=== PATIENT | female | born 1945 | race Caucasian/White ===

== ENCOUNTER 2022-03-09 15:46 | Inpatient (IN) ==
[2022-03-09] MEDS ORDERED: IOPAMIDOL 100 ML BOTTLE IV ONE (15:47)
[2022-03-09] MEDS ORDERED: VANCOMYCIN 1,500 MG in 0.9 % SODIUM CHLORIDE 500 ML IV ONE (17:23)
--- NOTE | 2022-03-09 17:23 | Emergency Department Note ---
Skin/Abscess/FB HPI <Patricia Calzada PA-C - Last Filed: 03/09/22 20:36> General Chief complaint: Skin/Abscess/Rash Stated complaint: Leg Injury Time Seen by Provider: 03/09/22 16:39 Source: patient Mode of arrival: ambulatory Limitations: no limitations History of Present Illness HPI Narrative: 76-year-old female with history of recurrent lower extremity cellulitis presents for the same to the right lower extremity today. Patient is a type II diabetic and reports her last A1c was around 8. She states she has a standing order for Keflex given her cellulitis and started taking this about 3 weeks ago but her symptoms have not been improving. Now her right lower extremity is erythematous and she has edema that extends up to the thigh. She denies F/C/S. Denies lightheadedness or dizziness. There is no previous culture data for review. Related Data Allergies Allergy/AdvReac Type Severity Reaction Status Date / Time enalaprilat [From Vasotec] Allergy Severe Swelling Verified 03/09/22 15:53 of Lip/Tongue/Throat clindamycin [From Cleocin] Allergy Intermediate Itching Verified 03/09/22 15:53 Review of Systems <Patricia Calzada PA-C - Last Filed: 03/09/22 20:36> ROS ROS Narrative: Narrative: All systems ED: reviewed and negative except as stated. PFSH <Patricia Calzada PA-C - Last Filed: 03/09/22 20:36> Narrative Patient History Narrative: Narrative: Medical/Surgical/Family History All Active Problems (Updated 03/09/22 @ 20:36 by Patricia Calzada PA-C) Cellulitis (Acute) Social History Smoking Status: Never smoker Exam <Patricia Calzada PA-C - Last Filed: 03/09/22 20:36> Narrative Narrative: General: AOx3, NAD, nontoxic appearing. Pleasant and conversant. HEENT: PERRL, EOMI, normocephalic. Moist mucous membranes. Normal facies and normal dentition. Respiratory: Lungs clear to auscultation bilaterally. No respiratory distress. Unlabored breathing. Heart: Regular rate and rhythm, no murmurs/clicks/rubs. Abdomen: Non-tender, Non distended Extremities: Warm and well perfused. Right lower extremity with 2+ pitting edema up to the mid thigh. There is circumferential erythema from the mid calf down to the ankle. There is some lymphadenitis up through the medial thigh. There is a small ulceration to the mid medial calf, no drainage. DP 2+ bilaterally. No venous stasis. Neuro: No focal deficits. Cranial nerves II-XII grossly normal. Skin: Warm dry, no rashes or lesions, no cyanosis. Psych: Normal mood and affect Heme/Lymph: No abnormal bruising General Limitations: no limitations Course <Patricia Calzada PA-C - Last Filed: 03/09/22 20:36> Course Course Narrative: 76-year-old female with history of lower extremity cellulitis and poorly controlled T2DM presents for 3 weeks of right lower extremity swelling Reevaluation(s) Reevaluation #1: Patient is reported that she has been taking Keflex for the last 3 weeks without improvement. We will obtain a right lower extremity ultrasound to rule out DVT and query for abscess. Establish IV and give IV vancomycin. Obtain basic labs. Patient's vital signs are stable without evidence of sepsis, but will obtain blood cultures given duration and extensiveness of her cellulitis. Reevaluation #2: Right lower extremity venous Doppler shows negative for clots. I have started IV vancomycin and given that the patient is failed outpatient treatment feel that she is appropriate for admission and IV antibiotics. I reached out to hospitalist for admission. Reevaluation #3: Hospitalist is asked me to order a CT of the right lower extremity to query for necrotizing fasciitis or abscess. This is currently pending. Plan will be for admission once resulted. Vital Signs Vital signs: Vital Signs Temperature 97.7 F 03/09/22 15:47 Pulse Rate 82 03/09/22 15:47 Respiratory Rate 16 03/09/22 15:47 Blood Pressure 137/81 03/09/22 15:47 Pulse Oximetry (%) 98 03/09/22 15:47 Oxygen Delivery Method 03/09/22 15:47 Temperature 97.3 F 03/09/22 23:51 Pulse Rate 86 03/09/22 23:51 Respiratory Rate 21 03/09/22 23:51 Blood Pressure 127/66 03/09/22 23:51 Pulse Oximetry (%) 94 03/09/22 23:51 Oxygen Delivery Method 03/09/22 23:36 Oxygen Flow Rate (L/min) 0 03/09/22 23:30 <Ethan Orourke MD - Last Filed: 03/10/22 03:23> Vital Signs Vital signs: Vital Signs Temperature 97.7 F 03/09/22 15:47 Pulse Rate 82 03/09/22 15:47 Respiratory Rate 16 03/09/22 15:47 Blood Pressure 137/81 03/09/22 15:47 Pulse Oximetry (%) 98 03/09/22 15:47 Oxygen Delivery Method 03/09/22 15:47 Temperature 97.3 F 03/09/22 23:51 Pulse Rate 86 03/09/22 23:51 Respiratory Rate 21 03/09/22 23:51 Blood Pressure 127/66 03/09/22 23:51 Pulse Oximetry (%) 94 03/09/22 23:51 Oxygen Delivery Method 03/09/22 23:36 Oxygen Flow Rate (L/min) 0 03/09/22 23:30 MDM <Patricia Calzada PA-C - Last Filed: 03/09/22 20:36> MDM Narrative Medical decision making narrative: Right lower extremity cellulitis Failed outpatient antibiotics. Patient was given IV vancomycin and Dr. Mo has tentatively accepted the patient for admission obtain CT of the right lower extremity. Lab Data Result diagrams: 03/09/22 17:25 Labs: Lab Results 03/09/22 03/09/22 03/09/22 Range/Units 17:25 18:03 19:57 WBC 9.0 (4.5-11.0) K/mcL RBC 4.50 (3.59-5.38) M/mcL Hgb 12.8 (11.2-15.7) g/dL Hct 40.1 (34.1-44.9) % POC Hct 37.0 (36-48) MCV 89.1 (80.0-100.0) fL MCH 28.4 (26.0-34.0) pg MCHC 31.9 (31.0-36.0) g/dL RDW 14.1 (11.5-14.5) % Plt Count 289 (140-440) K/mcL MPV 11.6 H (7.4-10.4) fL Immature Gran % (Auto) 0.6 H (0.0-0.5) % Neut % (Auto) 66.0 (38.0-78.0) % Lymph % (Auto) 21.9 (15.5-49.0) % [place] % (Auto) 8.5 (1.0-12.0) % Eos % (Auto) 2.8 (0.0-7.0) % Baso % (Auto) 0.2 (0.0-2.0) % Lymph # (Auto) 1.98 (1.50-4.80) K/mcL [place] # (Auto) 0.77 (0.10-0.90) K/mcL Eos # (Auto) 0.25 (0.00-0.70) K/mcL Baso # (Auto) 0.02 (0.00-0.30) K/mcL Immature Gran # 0.05 (0.00-0.05) K/mcl Absolute Neutrophils 6.02 (1.80-8.00) K/mcL ESR (0-30) mm/hr POC Sodium 137 (133-145) POC Potassium 3.1 L (3.3-5.1) POC Chloride 95 L (96-108) POC Total CO2 30.0 (22-30) POC BUN 24 H (6-20) POC Creatinine 0.8 (0.6-1.2) POC Glucose 236 H (70-105) Hemoglobin A1c (4.0-6.0) % Hgb Estim Average Glucose mg/dL POC WB Ioniz Calcium 1.29 (1.16-1.32) Total Bilirubin < 0.2 (0.1-1.0) mg/dL Direct Bilirubin < 0.2 (0-0.3) mg/dL AST 18 (<32) U/L ALT 19 (<40) U/L Alkaline Phosphatase 88 (39-117) U/L C-Reactive Protein 3.70 H (0.03-0.80) mg/dL Total Protein 7.2 (5.9-8.4) gm/dL Albumin 3.9 (3.2-5.2) gm/dL Globulin 3.3 (2.2-3.7) gm/dL 03/09/22 03/09/22 Range/Units 19:57 19:57 WBC (4.5-11.0) K/mcL RBC (3.59-5.38) M/mcL Hgb (11.2-15.7) g/dL Hct (34.1-44.9) % POC Hct (36-48) MCV (80.0-100.0) fL MCH (26.0-34.0) pg MCHC (31.0-36.0) g/dL RDW (11.5-14.5) % Plt Count (140-440) K/mcL MPV (7.4-10.4) fL Immature Gran % (Auto) (0.0-0.5) % Neut % (Auto) (38.0-78.0) % Lymph % (Auto) (15.5-49.0) % [place] % (Auto) (1.0-12.0) % Eos % (Auto) (0.0-7.0) % Baso % (Auto) (0.0-2.0) % Lymph # (Auto) (1.50-4.80) K/mcL [place] # (Auto) (0.10-0.90) K/mcL Eos # (Auto) (0.00-0.70) K/mcL Baso # (Auto) (0.00-0.30) K/mcL Immature Gran # (0.00-0.05) K/mcl Absolute Neutrophils (1.80-8.00) K/mcL ESR 58 H (0-30) mm/hr POC Sodium (133-145) POC Potassium (3.3-5.1) POC Chloride (96-108) POC Total CO2 (22-30) POC BUN (6-20) POC Creatinine (0.6-1.2) POC Glucose (70-105) Hemoglobin A1c 8.8 H (4.0-6.0) % Hgb Estim Average Glucose 206 mg/dL POC WB Ioniz Calcium (1.16-1.32) Total Bilirubin (0.1-1.0) mg/dL Direct Bilirubin (0-0.3) mg/dL AST (<32) U/L ALT (<40) U/L Alkaline Phosphatase (39-117) U/L C-Reactive Protein (0.03-0.80) mg/dL Total Protein (5.9-8.4) gm/dL Albumin (3.2-5.2) gm/dL Globulin (2.2-3.7) gm/dL <Ethan Orourke MD - Last Filed: 03/10/22 03:23> [facility] Narrative Medical decision making narrative: Right lower extremity cellulitis Failed outpatient antibiotics. Patient was given IV vancomycin and Dr. Mo has tentatively accepted the patient for admission obtain CT of the right lower extremity. Dr. Orourke: CT scan came back not showing any abscess or subcutaneous gas. Dr. Solis is admitted the patient. Lab Data Labs: Lab Results 03/09/22 03/09/22 03/09/22 Range/Units 17:25 18:03 19:57 WBC 9.0 (4.5-11.0) K/mcL RBC 4.50 (3.59-5.38) M/mcL Hgb 12.8 (11.2-15.7) g/dL Hct 40.1 (34.1-44.9) % POC Hct 37.0 (36-48) MCV 89.1 (80.0-100.0) fL MCH 28.4 (26.0-34.0) pg MCHC 31.9 (31.0-36.0) g/dL RDW 14.1 (11.5-14.5) % Plt Count 289 (140-440) K/mcL MPV 11.6 H (7.4-10.4) fL Immature Gran % (Auto) 0.6 H (0.0-0.5) % Neut % (Auto) 66.0 (38.0-78.0) % Lymph % (Auto) 21.9 (15.5-49.0) % [place] % (Auto) 8.5 (1.0-12.0) % Eos % (Auto) 2.8 (0.0-7.0) % Baso % (Auto) 0.2 (0.0-2.0) % Lymph # (Auto) 1.98 (1.50-4.80) K/mcL [place] # (Auto) 0.77 (0.10-0.90) K/mcL Eos # (Auto) 0.25 (0.00-0.70) K/mcL Baso # (Auto) 0.02 (0.00-0.30) K/mcL Immature Gran # 0.05 (0.00-0.05) K/mcl Absolute Neutrophils 6.02 (1.80-8.00) K/mcL ESR (0-30) mm/hr POC Sodium 137 (133-145) POC Potassium 3.1 L (3.3-5.1) POC Chloride 95 L (96-108) POC Total CO2 30.0 (22-30) POC BUN 24 H (6-20) POC Creatinine 0.8 (0.6-1.2) POC Glucose 236 H (70-105) Hemoglobin A1c (4.0-6.0) % Hgb Estim Average Glucose mg/dL POC WB Ioniz Calcium 1.29 (1.16-1.32) Total Bilirubin < 0.2 (0.1-1.0) mg/dL Direct Bilirubin < 0.2 (0-0.3) mg/dL AST 18 (<32) U/L ALT 19 (<40) U/L Alkaline Phosphatase 88 (39-117) U/L C-Reactive Protein 3.70 H (0.03-0.80) mg/dL Total Protein 7.2 (5.9-8.4) gm/dL Albumin 3.9 (3.2-5.2) gm/dL Globulin 3.3 (2.2-3.7) gm/dL 03/09/22 03/09/22 Range/Units 19:57 19:57 WBC (4.5-11.0) K/mcL RBC (3.59-5.38) M/mcL Hgb (11.2-15.7) g/dL Hct (34.1-44.9) % POC Hct (36-48) MCV (80.0-100.0) fL MCH (26.0-34.0) pg MCHC (31.0-36.0) g/dL RDW (11.5-14.5) % Plt Count (140-440) K/mcL MPV (7.4-10.4) fL Immature Gran % (Auto) (0.0-0.5) % Neut % (Auto) (38.0-78.0) % Lymph % (Auto) (15.5-49.0) % [place] % (Auto) (1.0-12.0) % Eos % (Auto) (0.0-7.0) % Baso % (Auto) (0.0-2.0) % Lymph # (Auto) (1.50-4.80) K/mcL [place] # (Auto) (0.10-0.90) K/mcL Eos # (Auto) (0.00-0.70) K/mcL Baso # (Auto) (0.00-0.30) K/mcL Immature Gran # (0.00-0.05) K/mcl Absolute Neutrophils (1.80-8.00) K/mcL ESR 58 H (0-30) mm/hr POC Sodium (133-145) POC Potassium (3.3-5.1) POC Chloride (96-108) POC Total CO2 (22-30) POC BUN (6-20) POC Creatinine (0.6-1.2) POC Glucose (70-105) Hemoglobin A1c 8.8 H (4.0-6.0) % Hgb Estim Average Glucose 206 mg/dL POC WB Ioniz Calcium (1.16-1.32) Total Bilirubin (0.1-1.0) mg/dL Direct Bilirubin (0-0.3) mg/dL AST (<32) U/L ALT (<40) U/L Alkaline Phosphatase (39-117) U/L C-Reactive Protein (0.03-0.80) mg/dL Total Protein (5.9-8.4) gm/dL Albumin (3.2-5.2) gm/dL Globulin (2.2-3.7) gm/dL Discharge Plan Patient/Caregiver Discharge Instructions Pt seen by INSURANCE ADJUSTER/PA only: Yes Clinical Impression: Cellulitis Patient Disposition: Xfer As Inpt ([facility]) Discharge Date/Time: 03/09/22 23:12
[2022-03-09 18:08] LABS: POC Calcium, Ionized 1.29 (1.16-1.32); POC Creatinine 0.8 (0.6-1.2); POC Potassium 3.1 (3.3-5.1)
[2022-03-09 18:22] LABS: Basophils # (Auto) 0.02 K/mcL (0.00-0.30); Basophils % (Auto) 0.2 % (0.0-2.0); Eosinophils # (Auto) 0.25 K/mcL (0.00-0.70); Eosinophils % (Auto) 2.8 % (0.0-7.0); Hematocrit 40.1 % (34.1-44.9); Hemoglobin 12.8 g/dL (11.2-15.7); Lymphocytes # (Auto) 1.98 K/mcL (1.50-4.80); Lymphocytes % (Auto) 21.9 % (15.5-49.0); Mean Cell Volume 89.1 fL (80.0-100.0); Mean Corpuscular HGB Conc 31.9 g/dL (31.0-36.0); Mean Platelet Volume 11.6 fL (7.4-10.4); Monocytes # (Auto) 0.77 K/mcL (0.10-0.90); Monocytes % (Auto) 8.5 % (1.0-12.0); Platelet Count 289 K/mcL (140-440); Red Cell Distribution Width 14.1 % (11.5-14.5)
--- NOTE | 2022-03-09 18:37 | Ultrasound Report ---
CLINICAL INFORMATION: Right leg cellulitis COMPARISON: None. FINDINGS: The entire deep venous system including the common femoral, superficial femoral, popliteal and paired trifurcation calf veins are easily compressible and show normal venous blood flow on color and spectral Doppler. No evidence of thrombus IMPRESSION: Negative exam - no evidence of deep vein thrombosis. Interpreted and Authenticated by: Freddie Pelletier 03/09/22
--- NOTE | 2022-03-09 19:50 | Internal Med History&Physical ---
HPI History of Present Illness Patient information: Note initiated : 03/09/22 at 7:47 pm Service Date, if different from initiated Date: [] Patient: Jaen Rojas a 76 y/o F admitted on for Leg Injury. Chief Complaint: [] History of present illness: Ms. Rojas is a 76 year old F Patient presents the ED with right lower extremity edema and erythema and pain. Patient has history of cellulitis and leg. She has recently been on several weeks of Keflex but her leg has continue to worsen over the last several weeks. Because she is failed outpatient therapy she came to the ED. Denies any fevers or chills. She did fall on her knee while ago but otherwise no injuries occluding cuts or scrapes. Ultrasound of leg revealed no DVT. CT of the leg pending Review of Systems: Pertinent positives as above. Denies headache/fever/chills/nausea/vomit ing/chest or abdominal pain/cough/dyspnea/diarrhea. Remaining 10 point review of systems reviewed negative PFSH PFSH All Active Problems (Updated 03/09/22 @ 20:36 by Patricia Calzada PA-C) Cellulitis (Acute) MEDS/ALLERGIES Home Medications and Allergies Allergies Allergy/AdvReac Type Severity Reaction Status Date / Time enalaprilat [From Vasotec] Allergy Severe Swelling Verified 03/09/22 15:53 of Lip/Tongue/Throat clindamycin [From Cleocin] Allergy Intermediate Itching Verified 03/09/22 15:53 EXAM Constitutional Vitals: Temp Pulse Resp BP Pulse Ox O2 Del Method 97.7 F 82 16 137/81 98 03/09/22 15:47 03/09/22 15:47 03/09/22 15:47 03/09/22 15:47 03/09/22 15:47 03/09/22 15:47 Exam: General: Alert, Awake, No acute Distress Eyes/N/T: EOMI, PERRL, Head/Neck: neck supple, normocephalic atraumatic CV: RRR, No murmurs, normal s1/s2 Pulm: Clear b/l, no wheezing/rhonchi/rales Abd: soft, nontender, +BS x4 Ext: no clubbing/cyanosis. RLE from ankle to just below the knee is erythematous tender and swollen Neuro: Alert, no focal deficits, moves all extremities, CN 2-12 grossly intact, symmetrical strength b/l upper/lower, sensations intact b/l upper/lower Skin: warm/dry DATA Data Completed and Pending Labs: Labs from last 24 hours 03/09/22 03/09/22 18:03 17:25 WBC 9.0 RBC 4.50 Hgb 12.8 Hct 40.1 POC Hct 37.0 MCV 89.1 MCH 28.4 MCHC 31.9 RDW 14.1 Plt Count 289 MPV 11.6 H Immature Gran % (Auto) 0.6 H Neut % (Auto) 66.0 Lymph % (Auto) 21.9 [place] % (Auto) 8.5 Eos % (Auto) 2.8 Baso % (Auto) 0.2 Lymph # (Auto) 1.98 [place] # (Auto) 0.77 Eos # (Auto) 0.25 Baso # (Auto) 0.02 Immature Gran # 0.05 Absolute Neutrophils 6.02 POC Sodium 137 POC Potassium 3.1 L POC Chloride 95 L POC Total CO2 30.0 POC BUN 24 H POC Creatinine 0.8 POC Glucose 236 H POC WB Ioniz Calcium 1.29 A/P Narrative A/P Narrative: A: *RLE cellulitis: Failed outpatient antibiotics -CT leg *Hypokalemia: *Volume depletion: *HTN: On enalapril/Norvasc *COPD (no home O2): *DM: *Obesity: BMI 30 *Chronic pain: P: -IV abx, MRSA screen pending -CT leg pending -A1c pending -IVF -Replete electrolytes -cont home BP meds -SSI -Elevate leg -PT/OT -Home medication reconciliation -ppx: Lovenox Time Spent With Patient Time: Total time spent is greater than 50% in coordination of care (as documented) at patient's floor/unit and/or counseling patient: Total time spent with greater than 50% in coordination of care (as documented) at patient's floor/unit and/or counseling patient:: 50 - 70 minutes
[2022-03-09 21:05] LABS: ALT/SGPT 19 U/L (<40); AST/SGOT 18 U/L (<32); Albumin 3.9 gm/dL (3.2-5.2); Alkaline Phosphatase 88 U/L (39-117); Bilirubin,Direct < 0.2 mg/dL (0-0.3); Bilirubin,Total < 0.2 mg/dL (0.1-1.0); Globulin 3.3 gm/dL (2.2-3.7)
[2022-03-09] MEDS: 0.9 % SODIUM CHLORIDE 10 ML SYRINGE IV SCH (23:15)
[2022-03-09] MEDS ORDERED: DEXTROSE 31 GM ORAL.SUSP PO PRN (23:36)
[2022-03-09] MEDS ORDERED: HYDROcodone/APAP 5/325MG TABLET PO PRN (23:36)
[2022-03-09] MEDS ORDERED: hydrALAZINE 20 MG/ML VIAL IV PRN (23:36)
[2022-03-09] MEDS ORDERED: POTASSIUM CHLORIDE 20 MEQ TABLET PO ONE (23:36)
[2022-03-09] MEDS ORDERED: ACETAMINOPHEN 325 MG TABLET PO PRN (23:36)
[2022-03-09] MEDS ORDERED: POTASSIUM CHLORIDE 20 MEQ TABLET PO PRN ×2 (23:36)
[2022-03-09] MEDS ORDERED: MAGNESIUM SULFATE 2 GM/50 ML BAG IV PRN (23:36)
[2022-03-09] MEDS ORDERED: SENNOSIDES 1 TABLET PO PRN (23:36)
[2022-03-09] MEDS ORDERED: DEXTROSE 50% 50 ML VIAL IV PRN (23:36)
[2022-03-09] MEDS ORDERED: POTASSIUM CHLORIDE 40 MEQ in DEXTROSE 5% IN WATER 500 ML IV PRN (23:36)
[2022-03-09] MEDS ORDERED: morphine 4 MG/ML VIAL IV PRN (23:36)
[2022-03-09] MEDS ORDERED: VANCOMYCIN PER PHARMACY IV ONE (23:36)
[2022-03-09] MEDS ORDERED: ONDANSETRON 4 MG/2 ML VIAL IV PRN (23:36)
[2022-03-09] MEDS ORDERED: cefTRIAXone 2 GM in DEXTROSE 5% IN WATER 50 ML IV SCH (23:36)
[2022-03-09] MEDS ORDERED: 0.9 % SODIUM CHLORIDE 1,000 ML IV ONE (23:36)
[2022-03-09] MEDS ORDERED: POLYETHYLENE GLYCOL 3350 17 GM PACKET PO PRN (23:36)
[2022-03-09] MEDS ORDERED: IPRATROPIUM/ALBUTEROL 3 ML AMPUL.NEB NEB PRN (23:36)
[2022-03-10] MEDS ORDERED: traMADol 50 MG TABLET PO PRN (00:16)
[2022-03-10] MEDS: DOCUSATE SODIUM 100 MG CAPSULE PO SCH ×2 (00:25→09:11)
[2022-03-10] MEDS: INSULIN LISPRO 1 UNIT/0.01 ML UNIT SQ SCH ×5 (00:28→20:41)
[2022-03-10] MEDS: ACETAMINOPHEN W/CODEINE #3 1 TABLET PO PRN ×3 (01:03→17:13)
[2022-03-10] MEDS ORDERED: ACETAMINOPHEN W/CODEINE #3 1 TABLET PO ONE ×2 (01:04→23:56)
[2022-03-10] MEDS ORDERED: POTASSIUM CHLORIDE 20 MEQ TABLET PO ONE (01:05)
[2022-03-10] MEDS ORDERED: cefTRIAXone 2 GM VIAL ONE ×2 (01:05→13:52)
[2022-03-10 01:08] LABS: Hemoglobin A1C 8.8 % Hgb (4.0-6.0)
--- NOTE | 2022-03-10 03:24 | Emergency Department Note ---
Skin/Abscess/FB HPI General Chief complaint: Skin/Abscess/Rash Stated complaint: Leg Injury Time Seen by Provider: 03/09/22 16:39 Source: patient Mode of arrival: ambulatory Limitations: no limitations History of Present Illness HPI Narrative: Narrative: Related Data Allergies Allergy/AdvReac Type Severity Reaction Status Date / Time enalaprilat [From Vasotec] Allergy Severe Swelling Verified 03/09/22 15:53 of Lip/Tongue/Throat clindamycin [From Cleocin] Allergy Intermediate Itching Verified 03/09/22 15:53 Review of Systems ROS ROS Narrative: Narrative: PFSH Narrative Patient History Narrative: Narrative: Medical/Surgical/Family History All Active Problems (Updated 03/09/22 @ 20:36 by Patricia Calzada PA-C) Cellulitis (Acute) Social History Smoking Status: Never smoker Exam Narrative Narrative: Narrative: General Limitations: no limitations Course Vital Signs Vital signs: Vital Signs Temperature 97.7 F 03/09/22 15:47 Pulse Rate 82 03/09/22 15:47 Respiratory Rate 16 03/09/22 15:47 Blood Pressure 137/81 03/09/22 15:47 Pulse Oximetry (%) 98 03/09/22 15:47 Oxygen Delivery Method 03/09/22 15:47 Temperature 97.3 F 03/09/22 23:51 Pulse Rate 86 03/09/22 23:51 Respiratory Rate 21 03/09/22 23:51 Blood Pressure 127/66 03/09/22 23:51 Pulse Oximetry (%) 94 03/09/22 23:51 Oxygen Delivery Method 03/09/22 23:36 Oxygen Flow Rate (L/min) 0 03/09/22 23:30 MDM MDM Narrative Medical decision making narrative: Narrative: Lab Data Result diagrams: 03/09/22 17:25 Labs: Lab Results 03/09/22 03/09/22 03/09/22 Range/Units 17:25 18:03 19:57 WBC 9.0 (4.5-11.0) K/mcL RBC 4.50 (3.59-5.38) M/mcL Hgb 12.8 (11.2-15.7) g/dL Hct 40.1 (34.1-44.9) % POC Hct 37.0 (36-48) MCV 89.1 (80.0-100.0) fL MCH 28.4 (26.0-34.0) pg MCHC 31.9 (31.0-36.0) g/dL RDW 14.1 (11.5-14.5) % Plt Count 289 (140-440) K/mcL MPV 11.6 H (7.4-10.4) fL Immature Gran % (Auto) 0.6 H (0.0-0.5) % Neut % (Auto) 66.0 (38.0-78.0) % Lymph % (Auto) 21.9 (15.5-49.0) % [place] % (Auto) 8.5 (1.0-12.0) % Eos % (Auto) 2.8 (0.0-7.0) % Baso % (Auto) 0.2 (0.0-2.0) % Lymph # (Auto) 1.98 (1.50-4.80) K/mcL [place] # (Auto) 0.77 (0.10-0.90) K/mcL Eos # (Auto) 0.25 (0.00-0.70) K/mcL Baso # (Auto) 0.02 (0.00-0.30) K/mcL Immature Gran # 0.05 (0.00-0.05) K/mcl Absolute Neutrophils 6.02 (1.80-8.00) K/mcL ESR (0-30) mm/hr POC Sodium 137 (133-145) POC Potassium 3.1 L (3.3-5.1) POC Chloride 95 L (96-108) POC Total CO2 30.0 (22-30) POC BUN 24 H (6-20) POC Creatinine 0.8 (0.6-1.2) POC Glucose 236 H (70-105) Hemoglobin A1c (4.0-6.0) % Hgb Estim Average Glucose mg/dL POC WB Ioniz Calcium 1.29 (1.16-1.32) Total Bilirubin < 0.2 (0.1-1.0) mg/dL Direct Bilirubin < 0.2 (0-0.3) mg/dL AST 18 (<32) U/L ALT 19 (<40) U/L Alkaline Phosphatase 88 (39-117) U/L C-Reactive Protein 3.70 H (0.03-0.80) mg/dL Total Protein 7.2 (5.9-8.4) gm/dL Albumin 3.9 (3.2-5.2) gm/dL Globulin 3.3 (2.2-3.7) gm/dL 03/09/22 03/09/22 Range/Units 19:57 19:57 WBC (4.5-11.0) K/mcL RBC (3.59-5.38) M/mcL Hgb (11.2-15.7) g/dL Hct (34.1-44.9) % POC Hct (36-48) MCV (80.0-100.0) fL MCH (26.0-34.0) pg MCHC (31.0-36.0) g/dL RDW (11.5-14.5) % Plt Count (140-440) K/mcL MPV (7.4-10.4) fL Immature Gran % (Auto) (0.0-0.5) % Neut % (Auto) (38.0-78.0) % Lymph % (Auto) (15.5-49.0) % [place] % (Auto) (1.0-12.0) % Eos % (Auto) (0.0-7.0) % Baso % (Auto) (0.0-2.0) % Lymph # (Auto) (1.50-4.80) K/mcL [place] # (Auto) (0.10-0.90) K/mcL Eos # (Auto) (0.00-0.70) K/mcL Baso # (Auto) (0.00-0.30) K/mcL Immature Gran # (0.00-0.05) K/mcl Absolute Neutrophils (1.80-8.00) K/mcL ESR 58 H (0-30) mm/hr POC Sodium (133-145) POC Potassium (3.3-5.1) POC Chloride (96-108) POC Total CO2 (22-30) POC BUN (6-20) POC Creatinine (0.6-1.2) POC Glucose (70-105) Hemoglobin A1c 8.8 H (4.0-6.0) % Hgb Estim Average Glucose 206 mg/dL POC WB Ioniz Calcium (1.16-1.32) Total Bilirubin (0.1-1.0) mg/dL Direct Bilirubin (0-0.3) mg/dL AST (<32) U/L ALT (<40) U/L Alkaline Phosphatase (39-117) U/L C-Reactive Protein (0.03-0.80) mg/dL Total Protein (5.9-8.4) gm/dL Albumin (3.2-5.2) gm/dL Globulin (2.2-3.7) gm/dL Discharge Plan Patient/Caregiver Discharge Instructions Pt seen by ELECTRIC SWITCH REPAIRER/PA only: Yes Clinical Impression: Cellulitis Patient Disposition: Xfer As Inpt ([facility]) Discharge Date/Time: 03/09/22 23:12
[2022-03-10] MEDS ORDERED: traMADol 50 MG TABLET PO ONE (03:59)
[2022-03-10] MEDS: 0.9 % SODIUM CHLORIDE 10 ML SYRINGE IV SCH ×3 (06:05→20:44)
[2022-03-10 06:52] LABS: Basophils # (Auto) 0.03 K/mcL (0.00-0.30); Basophils % (Auto) 0.4 % (0.0-2.0); Eosinophils # (Auto) 0.29 K/mcL (0.00-0.70); Eosinophils % (Auto) 3.7 % (0.0-7.0); Hematocrit 37.3 % (34.1-44.9); Hemoglobin 11.7 g/dL (11.2-15.7); Lymphocytes # (Auto) 1.38 K/mcL (1.50-4.80); Lymphocytes % (Auto) 17.6 % (15.5-49.0); Mean Cell Volume 88.8 fL (80.0-100.0); Mean Corpuscular HGB Conc 31.4 g/dL (31.0-36.0); Mean Platelet Volume 11.1 fL (7.4-10.4); Monocytes # (Auto) 0.61 K/mcL (0.10-0.90); Monocytes % (Auto) 7.8 % (1.0-12.0); Neutrophils % (Auto) 69.9 % (38.0-78.0); Platelet Count 258 K/mcL (140-440); WBC 7.8 K/mcL (4.5-11.0)
[2022-03-10 07:12] LABS: ALT/SGPT 15 U/L (<40); AST/SGOT 14 U/L (<32); Albumin 3.4 gm/dL (3.2-5.2); Albumin/Globulin Ratio 1.2 (1.0-2.3); Alkaline Phosphatase 71 U/L (39-117); Bilirubin,Direct < 0.2 mg/dL (0-0.3); Bilirubin,Total 0.2 mg/dL (0.1-1.0); Blood Urea Nitrogen 12 mg/dL (8-23); Calcium 8.9 mg/dL (8.6-10.4); Carbon Dioxide 26 mmol/L (22-30); Chloride 101 mmol/L (96-108); Globulin 2.8 gm/dL (2.2-3.7); Glomerular Filtration Rate 84; Glucose 126 mg/dL (70-105); Lactate Dehydrogenase 191 U/L (135-225); Phosphorous 2.8 mg/dL (2.5-4.5); Triglycerides 127 mg/dL (<150); Uric Acid 6.2 mg/dL (2.5-8.0)
--- NOTE | 2022-03-10 07:30 | Cat Scan Report ---
CLINICAL INFORMATION: Erythema. Evaluate for abscess COMPARISON: None. TECHNIQUE: 0.625 mm axial slices were obtained from the femoral condyles through the midfoot region. Following reconstruction, 2.5 millimeter axial, sagittal and coronal reformations were obtained and reviewed in bone and soft tissue windows.The exam was performed using radiation dose optimization techniques including, but not limited to, automated exposure control, adjustment of the mA and/or kV according to patient size and use of iterative reconstruction technique. FINDINGS: Bone windows show a nondisplaced subacute spiral fracture the distal fibular diaphysis extending to the metaphysis. No other osseous abnormalities-no evidence of osteomyelitis. The patellofemoral and tibiofemoral joint ankle mortise and joints of the hindfoot space are normal in width and alignment without arthritic change. A 20 mm benign lipoma is seen within the gastrocnemius muscle belly. No evidence of myositis or abscess. There is moderate diffuse edema or cellulitis in the subcutaneous fat throughout the calf and ankle. IMPRESSION: 1. Diffuse edema or cellulitis throughout the subcutaneous fat of the calf and ankle. No evidence of abscess or myositis. 2. No evidence of osteomyelitis. 3. Subacute nondisplaced spiral fracture of the distal fibula diaphysis and metaphysis. 4. 20 mm lipoma in the gastrocnemius muscle belly Interpreted and Authenticated by: Freddie Pellteier 03/10/22
[2022-03-10] MEDS ORDERED: FLUCONAZOLE 150 MG TABLET PO PRN (07:35)
--- NOTE | 2022-03-10 07:39 | Internal Med Progress Note ---
SUBJECTIVE Subjective Patient information: Note initiated : 03/10/22 at 7:32 am Service Date, if different from initiated Date: [] Patient: Jane Rojas a 77 y/o F admitted on 03/09/22 for Leg Injury. Chief Complaint: [] Interval history: History of present illness: Ms. Rojas is a 76 year old F Patient presents the ED with right lower extremity edema and erythema and pain. Patient has history of cellulitis and leg. She has recently been on several weeks of Keflex but her leg has continue to worsen over the last several weeks. Because she is failed outpatient therapy she came to the ED. Denies any fevers or chills. She did fall on her knee while ago but otherwise no injuries occluding cuts or scrapes. Ultrasound of leg revealed no DVT. CT of the leg pending 03/10 Patient states no change in her leg as far as pain and swelling and redness. Mild edema. Patient has chronic pain in ask about her Tylenol for and tramadol. Boot to right ankle weightbearing as tolerated Review of Systems: denies headache/fever/chills/nausea/vomiting/chest or abdominal pain/cough/dyspnea/diarrhea. Otherwise see above. Constitutional Vitals: Vital Signs Temp Pulse Resp BP Pulse Ox O2 Del Method O2 Flow Rate 98.8 F 86 16 126/69 94 0 03/10/22 04:00 03/09/22 23:51 03/10/22 04:00 03/10/22 04:00 03/10/22 04:00 03/10/22 04:00 03/10/22 04:00 Period Temp Pulse Resp BP Sys/Venegas Pulse Ox O2 Del Method O2 Flow Rate Last 24 Hr 97.3 F-98.8 F 82-91 16- 112-154/53-81 94-98 Room Air-Room r 0-0 Intake and Output 03/09/22 03/10/22 03/10/22 21:59 05:59 13:59 Intake Total 500 900 Balance 500 900 Weight 75.75 kg 77.065 kg Intake & Output: Intake & Output 03/09/22 03/10/22 03/10/22 21:59 05:59 13:59 Intake Total 500 900 Balance 500 900 Weight 75.75 kg 77.065 kg Intake: IV 500 50 Vancomycin 1,500 mg In Sodium 500 Chloride 0.9% 500 ml @ 333.3 mls/hr IV ONCE ONE Rx#: [id number] Rocephin 2 gm In Dextrose 5% in 50 Water 50 ml @ 100 mls/hr IV Q24H [facility] Rx#:[id number] Oral 850 Other: Meal snack Percent of Meal Consumed 100% Nourishment/Supplement name given egg salad # Voids 1 # Bowel Movements 0 Exam: General: Alert, Awake, No acute Distress, obese Eyes/N/T: EOMI, Head/Neck: neck supple, CV: RRR, No murmurs, Pulm: Clear b/l, no wheezing/rhonchi/rales Abd: soft, nontender, +BS x4 Ext: no clubbing/cyanosis. RLE from ankle to just below the knee is erythematous tender and swollen Neuro: Alert, no focal deficits, moves all extremities, Skin: warm/dry OBJ DATA Labs CBC & Chem 7: 03/10/22 05:23 03/10/22 05:23 Labs: Abnormal Lab Results 03/10/22 03/10/22 03/09/22 05:23 05:23 19:57 MPV 11.1 H Immature Gran % (Auto) 0.6 H Lymph # (Auto) 1.38 L ESR POC Potassium POC Chloride POC BUN Glucose 126 H POC Glucose Hemoglobin A1c 8.8 H GGT 39 H C-Reactive Protein 03/09/22 03/09/22 03/09/22 19:57 19:57 18:03 MPV Immature Gran % (Auto) Lymph # (Auto) ESR 58 H POC Potassium 3.1 L POC Chloride 95 L POC BUN 24 H Glucose POC Glucose 236 H Hemoglobin A1c GGT C-Reactive Protein 3.70 H 03/09/22 17:25 MPV 11.6 H Immature Gran % (Auto) 0.6 H Lymph # (Auto) ESR POC Potassium POC Chloride POC BUN Glucose POC Glucose Hemoglobin A1c GGT C-Reactive Protein Meds: Medications Acetaminophen (Acetaminophen 325 Mg Tablet) 650 mg PO Q6HP PRN; Protocol PRN Reason: Per Pain Protocol/Fever > 101 Acetaminophen/Codeine Phosphate (Acetaminophen W/Codeine #3 1 Tablet) 2 tab PO Q6HP PRN; Protocol PRN Reason: Per Pain Protocol Last Admin: 03/10/22 01:03 Dose: 2 tab Albuterol/Ipratropium (Ipratropium/Albuterol 3 Ml Ampul.Neb) 3 ml NEB Q4HP PRN PRN Reason: Shortness Of Breath Dextrose (Dextrose 50% 50 Ml Vial) 0 ml IV UD PRN PRN Reason: Per Sliding Scale Diagnostic Test (Pha) (Accu-Chek 1 Each Strip) 1 each FS ACHS [facility] Last Admin: 03/10/22 00:05 Dose: 1 each Docusate Sodium (Docusate Sodium 100 Mg Capsule) 100 mg PO BID [facility] Last Admin: 03/10/22 00:25 Dose: Not Given Enoxaparin Sodium (Enoxaparin 40 Mg/0.4 Ml Syringe) 40 mg SQ DAILY [facility] Glucose (Dextrose 31 Gm Oral.Susp) 15 gm PO PRN PRN PRN Reason: Hypoglycemia Hydralazine HCl (Hydralazine 20 Mg/Ml Vial) 0 mg IV Q2HP PRN PRN Reason: Hypertension Potassium Chloride 40 meq/ (Dextrose) 520 mls @ 130 mls/hr IV UD PRN PRN Reason: Potassium < 3 Magnesium Sulfate (Magnesium Sulfate) 2 gm in 50 mls @ 50 mls/hr IV UD PRN PRN Reason: Magnesium </= 1.6 Sodium Chloride (Sodium Chloride 0.9%) 1,000 mls @ 75 mls/hr IV .[id number] ONE Stop: 03/10/22 12:55 Last Admin: 03/10/22 00:30 Dose: 75 mls/hr Ceftriaxone Sodium 2 gm/ (Dextrose) 50 mls @ 100 mls/hr IV Q24H [facility]; Protocol Last Infusion: 03/10/22 01:36 Dose: Infused Insulin Human Lispro (Insulin Lispro 1 Unit/0.01 Ml Unit) 0 unit SQ [facility]; Protocol Last Admin: 03/10/22 00:28 Dose: Not Given Ondansetron HCl (Ondansetron 4 Mg/2 Ml Vial) 4 mg IV Q4HP PRN PRN Reason: Nausea And Vomiting Polyethylene Glycol (Polyethylene Glycol 3350 17 Gm Packet) 17 gm PO DAILYP PRN PRN Reason: Constipation Potassium Chloride (Potassium Chloride 20 Meq Tablet) 40 meq PO UD PRN PRN Reason: Potssium is 3-3.5 Potassium Chloride (Potassium Chloride 20 Meq Tablet) 40 meq PO UD PRN PRN Reason: Potassium < 3 Potassium Chloride (Potassium Chloride 20 Meq Tablet) 40 meq PO ONCE ONE Stop: 03/09/22 23:37 Last Admin: 03/10/22 01:03 Dose: 40 meq Senna (Sennosides 1 Tablet) 2 tab PO DAILYP PRN PRN Reason: Constipation Sodium Chloride (0.9 % Sodium Chloride 10 Ml Syringe) 10 ml IV Q8 [facility] Last Admin: 03/10/22 06:05 Dose: Not Given Tramadol HCl (Tramadol 50 Mg Tablet) 50 mg PO Q4HP PRN; Protocol PRN Reason: Pain Last Admin: 03/10/22 03:51 Dose: 50 mg Vancomycin HCl (Vancomycin Per Pharmacy) 1 order IV ONCE ONE; Protocol Stop: 03/09/22 23:37 Last Admin: 03/10/22 01:08 Dose: Not Given A/P Narrative A/P Narrative: A: *RLE cellulitis: Failed outpatient antibiotics -CT leg no abscess /fasciitis *Hypokalemia: improved *Volume depletion: *HTN: On enalapril/Norvasc *COPD (no home O2): *DM: a1c 8.8 *Obesity: BMI 30 *Chronic pain: *GERD: *subacute lateral malleolus fracture on right P: -IV abx, MRSA screen neg -CT leg pending -Replete electrolytes -cont home BP meds and diuretics -basal and SSI -Elevate leg -Per Geo for ankle> wbat, boot, f/u in office -PT/OT -ppx: Lovenox / home ppi Time Spent With Patient Time: Total time spent is greater than 50% in coordination of care (as documented) at patient's floor/unit and/or counseling patient: Total time spent with greater than 50% in coordination of care (as documented) at patient's floor/unit and/or counseling patient:: 25 - 35 minutes QUALITY VTE Deep Vein Thrombosis/Pulmonary Embolism Present on Admission: No
[2022-03-10] MEDS ORDERED: VANCOMYCIN PER PHARMACY IV SCH (07:45)
[2022-03-10] MEDS ORDERED: UMECLIDINIUM 62.5 MCG INH SCH (09:00)
[2022-03-10] MEDS ORDERED: DOCUSATE SODIUM 100 MG PO SCH (09:00)
[2022-03-10] MEDS: SPIRONOLACTONE 25 MG TABLET PO SCH (09:08)
[2022-03-10] MEDS: ENOXAPARIN 40 MG/0.4 ML SYRINGE SQ SCH (09:09)
[2022-03-10] MEDS: FUROSEMIDE 80 MG TABLET PO SCH (09:09)
[2022-03-10] MEDS: METHOCARBAMOL 500 MG TABLET PO PRN ×3 (09:09→20:43)
[2022-03-10] MEDS: ALLOPURINOL 100 MG TABLET PO SCH (09:10)
[2022-03-10] MEDS: PREGABALIN 100 MG CAPSULE PO SCH ×3 (09:10→20:42)
[2022-03-10] MEDS: MONTELUKAST 10 MG TABLET PO SCH ×2 (09:10→20:43)
[2022-03-10] MEDS: VANCOMYCIN 1,000 MG in 0.9 % SODIUM CHLORIDE 250 ML IV SCH ×2 (10:50→22:09)
[2022-03-10] MEDS: POTASSIUM CHLORIDE 10 MEQ TABLET PO SCH ×2 (10:51→17:10)
[2022-03-10] MEDS: INSULIN GLARGINE, HUMAN 1 UNIT/0.01 ML SQ SCH ×2 (10:51→20:41)
[2022-03-10] MEDS: FLUTICASONE/SALMETEROL 250/50 INHALER #14 INH SCH ×2 (11:17→20:40)
[2022-03-10] MEDS: PRAMIPEXOLE 0.25 MG TABLET PO SCH ×2 (13:44→20:42)
[2022-03-10] MEDS: traMADol 50 MG TABLET PO PRN ×2 (13:55→22:08)
[2022-03-10] MEDS: cefTRIAXone 2 GM in DEXTROSE 5% IN WATER 50 ML IV SCH (15:21)
[2022-03-10] MEDS: METOPROLOL SUCCINATE 25 MG TAB.XL.24H PO SCH (20:43)
[2022-03-10] MEDS: SIMVASTATIN 10 MG TABLET PO SCH (20:43)
[2022-03-10] MEDS ORDERED: [UNRECOGNIZED DRUG - OTHER] INH SCH (21:00)
[2022-03-10] MEDS ORDERED: ALBUTEROL SULFATE 200 PUFF INHALER INH PRN (23:14)
[2022-03-10] MEDS ORDERED: ACETAMINOPHEN W/CODEINE #3 1 TABLET PO PRN (23:34)
[2022-03-11] MEDS: traMADol 50 MG TABLET PO PRN ×2 (05:13→19:26)
[2022-03-11] MEDS: 0.9 % SODIUM CHLORIDE 10 ML SYRINGE IV SCH ×3 (05:14→20:36)
[2022-03-11 07:16] LABS: Blood Urea Nitrogen 13 mg/dL (8-23); Calcium 9.1 mg/dL (8.6-10.4); Carbon Dioxide 25 mmol/L (22-30); Chloride 104 mmol/L (96-108); Glomerular Filtration Rate 72; Glucose 160 mg/dL (70-105)
--- NOTE | 2022-03-11 07:45 | Internal Med Progress Note ---
SUBJECTIVE Subjective Patient information: Note initiated : 03/11/22 at 7:41 am Service Date, if different from initiated Date: [] Patient: Jane Rojas a 77 y/o F admitted on 03/09/22 for Leg Injury. Chief Complaint: [] Interval history: History of present illness: Ms. Rojas is a 76 year old F Patient presents the ED with right lower extremity edema and erythema and pain. Patient has history of cellulitis and leg. She has recently been on several weeks of Keflex but her leg has continue to worsen over the last several weeks. Because she is failed outpatient therapy she came to the ED. Denies any fevers or chills. She did fall on her knee while ago but otherwise no injuries occluding cuts or scrapes. Ultrasound of leg revealed no DVT. CT of the leg pending 03/10 Patient states no change in her leg as far as pain and swelling and redness. Mild edema. Patient has chronic pain in ask about her Tylenol for and tramadol. Boot to right ankle weightbearing as tolerated 03/11 Patient states no change in her leg although she does feel some swelling is improved since given some extra dose of Lasix yesterday. Compression wraps not placed yesterday. Review of Systems: denies headache/fever/chills/nausea/vomiting/chest or abdominal p ain/cough/dyspnea/diarrhea. Otherwise see above. Constitutional Vitals: Vital Signs Temp Pulse Resp BP Pulse Ox O2 Del Method O2 Flow Rate 97.9 F 118 H 20 135/75 96 0 03/11/22 04:00 03/10/22 20:00 03/11/22 04:00 03/11/22 04:00 03/11/22 04:00 03/11/22 04:00 03/11/22 04:00 Period Temp Pulse Resp BP Sys/Venegas Pulse Ox O2 Del Method O2 Flow Rate Last 24 Hr 97.9 F-99.2 F 118 20-20 102-155/57-91 93-99 Room Air-Room Air 0-0 Intake and Output 03/10/22 03/11/22 03/11/22 21:59 05:59 13:59 Intake Total 1700 1300 Output Total 0 Balance 1700 1300 Weight 69.763 kg Intake & Output: Intake & Output 03/10/22 03/11/22 03/11/22 21:59 05:59 13:59 Intake Total 1700 1300 Output Total 0 Balance 1700 1300 Weight 69.763 kg Intake: IV 1050 250 Sodium Chloride 0.9% 1,000 ml @ 1000 75 mls/hr IV .[id number] Rx#: [id number] Vancomycin 1,000 mg In Sodium 250 Chloride 0.9% 250 ml @ 250 mls/ hr IV Q12H [facility] Rx#:[id number] Rocephin 2 gm In Dextrose 5% in 50 Water 50 ml @ 100 mls/hr IV Q24H [facility] Rx#:[id number] Oral 650 1050 Output: # of times incontinent of urine 0 Other: Meal snack Percent of Meal Consumed 100% Nourishment/Supplement name tuna fish salad and crackers Urine Appearance Clear Urine Color Pale Urine Odor Normal Stool Size Smear Stool Color Brown Stool Consistency Cylindrical # Voids 1 1 # Bowel Movements 3 0 # of times incontinent of 0 Bowels Exam: General: Alert, Awake, No acute Distress, obese Eyes/N/T: EOMI, Head/Neck: neck supple, CV: RRR, No murmurs, Pulm: Clear b/l, no wheezing/rhonchi/rales Abd: soft, nontender, +BS x4 Ext: no clubbing/cyanosis. RLE from ankle to just below the knee is erythematous mildly tender and mild edema Neuro: Alert, no focal deficits, moves all extremities, Skin: warm/dry OBJ DATA Labs CBC & Chem 7: 03/10/22 05:23 03/11/22 05:46 Labs: Abnormal Lab Results 03/11/22 03/11/22 03/10/22 05:46 05:46 05:23 MPV Immature Gran % (Auto) Lymph # (Auto) ESR 61 H POC Potassium POC Chloride POC BUN Glucose 160 H 126 H POC Glucose Hemoglobin A1c GGT 39 H C-Reactive Protein 2.30 H 03/10/22 03/09/22 03/09/22 05:23 19:57 19:57 MPV 11.1 H Immature Gran % (Auto) 0.6 H Lymph # (Auto) 1.38 L ESR 58 H POC Potassium POC Chloride POC BUN Glucose POC Glucose Hemoglobin A1c 8.8 H GGT C-Reactive Protein 03/09/22 03/09/22 03/09/22 19:57 18:03 17:25 MPV 11.6 H Immature Gran % (Auto) 0.6 H Lymph # (Auto) ESR POC Potassium 3.1 L POC Chloride 95 L POC BUN 24 H Glucose POC Glucose 236 H Hemoglobin A1c GGT C-Reactive Protein 3.70 H Meds: Medications Acetaminophen (Acetaminophen 325 Mg Tablet) 650 mg PO Q6HP PRN; Protocol PRN Reason: Per Pain Protocol/Fever > 101 Acetaminophen/Codeine Phosphate (Acetaminophen W/Codeine #3 1 Tablet) 2 tab PO Q6HP PRN; Protocol PRN Reason: Per Pain Protocol Last Admin: 03/10/22 23:47 Dose: 2 tab Albuterol Sulfate (Albuterol Sulfate 200 Puff Inhaler) 2 puff INH Q4HP PRN PRN Reason: Shortness Of Breath Last Admin: 03/11/22 01:26 Dose: 2 puff Albuterol/Ipratropium (Ipratropium/Albuterol 3 Ml Ampul.Neb) 3 ml NEB Q4HP PRN PRN Reason: Shortness Of Breath Allopurinol (Allopurinol 100 Mg Tablet) 100 mg PO QDAY [facility] Last Admin: 03/10/22 09:10 Dose: 100 mg Dextrose (Dextrose 50% 50 Ml Vial) 0 ml IV UD PRN PRN Reason: Per Sliding Scale Diagnostic Test (Pha) (Accu-Chek 1 Each Strip) 1 each FS ACHS [facility] Last Admin: 03/10/22 20:40 Dose: 1 each Enoxaparin Sodium (Enoxaparin 40 Mg/0.4 Ml Syringe) 40 mg SQ DAILY [facility] Last Admin: 03/10/22 09:09 Dose: 40 mg Furosemide (Furosemide 80 Mg Tablet) 80 mg PO QDAY [facility] Last Admin: 03/10/22 09:09 Dose: 80 mg Glucose (Dextrose 31 Gm Oral.Susp) 15 gm PO PRN PRN PRN Reason: Hypoglycemia Hydralazine HCl (Hydralazine 20 Mg/Ml Vial) 0 mg IV Q2HP PRN PRN Reason: Hypertension Last Admin: 03/11/22 00:05 Dose: 10 mg Potassium Chloride 40 meq/ (Dextrose) 520 mls @ 130 mls/hr IV UD PRN PRN Reason: Potassium < 3 Magnesium Sulfate (Magnesium Sulfate) 2 gm in 50 mls @ 50 mls/hr IV UD PRN PRN Reason: Magnesium </= 1.6 Ceftriaxone Sodium 2 gm/ (Dextrose) 50 mls @ 100 mls/hr IV Q24H [facility]; Protocol Last Infusion: 03/10/22 17:01 Dose: Infused Vancomycin HCl 1,000 mg/ (Sodium Chloride) 250 mls @ 250 mls/hr IV Q12H [facility] Last Infusion: 03/10/22 23:10 Dose: Infused Insulin Glargine (Insulin Glargine, Human 1 Unit/0.01 Ml) 30 unit SQ [facility] Last Admin: 03/10/22 20:41 Dose: 30 units Insulin Glargine (Insulin Glargine, Human 1 Unit/0.01 Ml) 72 unit SQ DAILY [facility] Last Admin: 03/10/22 10:51 Dose: 72 units Insulin Human Lispro (Insulin Lispro 1 Unit/0.01 Ml Unit) 0 unit SQ ACHS [facility]; Protocol Last Admin: 03/10/22 20:41 Dose: 10 units Methocarbamol (Methocarbamol 500 Mg Tablet) 1,000 mg PO QIDP PRN PRN Reason: Spasms Last Admin: 03/10/22 20:43 Dose: 1,000 mg Metoprolol Succinate (Metoprolol Succinate 25 Mg Tab.Xl.24h) 25 mg PO [facility] Last Admin: 03/10/22 20:43 Dose: 25 mg Montelukast Sodium (Montelukast 10 Mg Tablet) 10 mg PO QDAY [facility] Last Admin: 03/10/22 09:10 Dose: 10 mg Montelukast Sodium (Montelukast 10 Mg Tablet) 10 mg PO QPM [facility] Last Admin: 03/10/22 20:43 Dose: 10 mg Non-Formulary Medication (Acetaminophen-Codeine ) 60 - 300 mg PO Q6HP PRN PRN Reason: Pain Non-Formulary Medication (Patient's Own Medication) 1 puff INH QHS [facility] Last Admin: 03/10/22 22:08 Dose: 1 puff Ondansetron HCl (Ondansetron 4 Mg/2 Ml Vial) 4 mg IV Q4HP PRN PRN Reason: Nausea And Vomiting Pantoprazole Sodium (Pantoprazole 40 Mg Tablet) [facility] Umeclidin[facility] [ Incruse Ellipta] 62. 5 Mcg Inhaler 1 dose INH QDAY [facility] Last Admin: 03/10/22 11:17 Dose: Not Given Polyethylene Glycol (Polyethylene Glycol 3350 17 Gm Packet) 17 gm PO DAILYP PRN PRN Reason: Constipation Potassium Chloride (Potassium Chloride 20 Meq Tablet) 40 meq PO UD PRN PRN Reason: Potssium is 3-3.5 Potassium Chloride (Potassium Chloride 20 Meq Tablet) 40 meq PO UD PRN PRN Reason: Potassium < 3 Potassium Chloride (Potassium Chloride 10 Meq Tablet) 10 meq PO BIDCC [facility] Last Admin: 03/10/22 17:10 Dose: 10 meq Pramipexole Dihydrochloride (Pramipexole 0.25 Mg Tablet) 0.5 mg PO QHS [facility] Last Admin: 03/10/22 20:42 Dose: 0.5 mg Pramipexole Dihydrochloride (Pramipexole 0.25 Mg Tablet) 0.25 mg PO QNOON [facility] Last Admin: 03/10/22 13:44 Dose: 0.25 mg Pregabalin (Pregabalin 100 Mg Capsule) 200 mg PO TID [facility] Last Admin: 03/10/22 20:42 Dose: 200 mg Fluticasone/Salmeterol (Fluticasone/Salmeterol 250/50 Inhaler #14) 2 puff INH BID [facility] Last Admin: 03/10/22 20:40 Dose: 2 puff Simvastatin (Simvastatin 10 Mg Tablet) 10 mg PO HS [facility] Last Admin: 03/10/22 20:43 Dose: 10 mg Sodium Chloride (0.9 % Sodium Chloride 10 Ml Syringe) 10 ml IV Q8 [facility] Last Admin: 03/11/22 05:14 Dose: 10 ml Spironolactone (Spironolactone 25 Mg Tablet) 100 mg PO DAILY [facility] Last Admin: 03/10/22 09:08 Dose: 100 mg Tramadol HCl (Tramadol 50 Mg Tablet) 50 - 100 mg PO Q6HP PRN; Protocol PRN Reason: Pain Last Admin: 03/11/22 05:13 Dose: 100 mg Vancomycin HCl (Vancomycin Per Pharmacy) 1 order IV UD [facility]; Protocol A/P Narrative A/P Narrative: A: *RLE cellulitis: Failed outpatient antibiotics -CT leg no abscess /fasciitis *Hypokalemia: improved *Volume depletion:improved *HTN: On enalapril/Norvasc *COPD (no home O2): *DM: a1c 8.8 *Obesity: BMI 30 *Chronic pain: *GERD: *subacute lateral malleolus fracture on right P: -IV abx, MRSA screen neg -Replete electrolytes -cont home BP meds and diuretics -basal and SSI -Elevate leg -Per Geo for ankle> wbat, boot, f/u in office -PT/OT -ppx: Lovenox / home ppi Time Spent With Patient Time: Total time spent is greater than 50% in coordination of care (as documented) at patient's floor/unit and/or counseling patient: Total time spent with greater than 50% in coordination of care (as documented) at patient's floor/unit and/or counseling patient:: 25 - 35 minutes QUALITY VTE Deep Vein Thrombosis/Pulmonary Embolism Present on Admission: No
[2022-03-11] MEDS: PREGABALIN 100 MG CAPSULE PO SCH ×3 (08:04→20:34)
[2022-03-11] MEDS: ENOXAPARIN 40 MG/0.4 ML SYRINGE SQ SCH (08:04)
[2022-03-11] MEDS: PANTOPRAZOLE 40 MG TABLET PO SCH (08:04)
[2022-03-11] MEDS: FUROSEMIDE 80 MG TABLET PO SCH (08:05)
[2022-03-11] MEDS: MONTELUKAST 10 MG TABLET PO SCH ×2 (08:05→20:35)
[2022-03-11] MEDS: POTASSIUM CHLORIDE 10 MEQ TABLET PO SCH ×2 (08:05→17:31)
[2022-03-11] MEDS: ALLOPURINOL 100 MG TABLET PO SCH (08:05)
[2022-03-11] MEDS: SPIRONOLACTONE 25 MG TABLET PO SCH (08:05)
[2022-03-11] MEDS: METHOCARBAMOL 500 MG TABLET PO PRN ×2 (08:29→23:44)
[2022-03-11] MEDS: INSULIN GLARGINE, HUMAN 1 UNIT/0.01 ML SQ SCH ×2 (08:29→20:33)
[2022-03-11] MEDS: INSULIN LISPRO 1 UNIT/0.01 ML UNIT SQ SCH ×4 (08:29→20:33)
[2022-03-11] MEDS ORDERED: VANCOMYCIN PER PHARMACY IV SCH (08:30)
[2022-03-11] MEDS ORDERED: FUROSEMIDE 20 MG/2 ML VIAL IV ONE (09:16)
[2022-03-11] MEDS: CLINDAMYCIN 600 MG in DEXTROSE 5% IN WATER 50 ML IV SCH ×3 (09:21→22:48)
[2022-03-11] MEDS ORDERED: FLUCONAZOLE 150 MG TABLET PO ONE (09:29)
[2022-03-11] MEDS: cefTRIAXone 2 GM in DEXTROSE 5% IN WATER 50 ML IV SCH (10:16)
--- NOTE | 2022-03-11 10:32 | Discharge Summary ---
Discharge Provider Provider IMPORTANT FOLLOW-UP INFORMATION FOR PCP: Patient information: Note initiated : 03/11/22 at 10:31 am Service Date, if different from initiated Date: [] Patient: Jane Rojas 77 y/o F admitted on 03/09/22 for Leg Injury. Chief Complaint: [] Date of admission: 03/09/22 23:13 Discharge date: 03/12/22 Primary care physician: Greta Ayala Consults: 03/09/22 Consult to Physician [CONS] Stat Comment: Consulting Provider: Bola Mo Reason For Exam: Physician to Consult COURSE Hospital Course Hospital course: Interval history: History of present illness: Ms. Rojas is a 76 year old F Patient presents the ED with right lower extremity edema and erythema and pain. Patient has history of cellulitis and leg. She has recently been on several weeks of Keflex but her leg has continue to worsen over the last several weeks. Because she is failed outpatient therapy she came to the ED. Denies any fevers or chills. She did fall on her knee while ago but otherwise no injuries occluding cuts or scrapes. Ultrasound of leg revealed no DVT. CT of the leg pending 03/10 Patient states no change in her leg as far as pain and swelling and redness. Mild edema. Patient has chronic pain in ask about her Tylenol for and tramadol. Boot to right ankle weightbearing as tolerated 03/11 Patient states no change in her leg although she does feel some swelling is improved since given some extra dose of Lasix yesterday. Compression wraps not placed yesterday. Ordered arterial ultrasound in that right leg given the patient's reported history of recurrent cellulitis and poor response to recent antibiotics. Arterial ultrasound shows moderate stenosis in the right external iliac and common femoral artery. Will start aspirin and refer the patient to see Dr. Brown for potential vascular intervention. 03/12 Patient feeling better. States his leg is feeling better and desired to go home. Arterial ultrasound with external iliac stenosis as well as common femoral. Will refer to see Dr. Brown. A: *RLE cellulitis: Failed outpatient antibiotics -CT leg no abscess /fasciitis *Hypokalemia: improved *Volume depletion:improved *HTN: On enalapril/Norvasc *COPD (no home O2): *DM: a1c 8.8 *Obesity: BMI 30 *Chronic pain: *GERD: *subacute lateral malleolus fracture on right P: abx, MRSA screen neg er Geo for ankle> wbat, boot, f/u in office Discharge diagnosis: Right lower extremity cellulitis right lateral malleolus fracture subacute Secondary discharge diagnosis: Hypokalemia volume depletion hypertension COPD diabetes obesity chronic pain GERD Time Spent with Patient Time attestation: Total time spent providing and/or coordinating discharge services: Time spent: Greater than 30 minutes EXAM Constitutional Vitals: Temp Pulse Resp BP Pulse Ox O2 Del Method O2 Flow Rate 97.9 F 86 17 125/61 96 0 03/11/22 07:43 03/11/22 07:43 03/11/22 07:43 03/11/22 07:43 03/11/22 07:43 03/11/22 07:43 03/11/22 04:00 Discharge Data Data Completed and Pending Labs on day of discharge: Labs from last 24 hours 03/11/22 03/11/22 05:46 05:46 ESR 61 H Sodium 139 Potassium 3.6 Chloride 104 Carbon Dioxide 25 Anion Gap 10.0 BUN 13 Creatinine 0.8 GFR Calculation 72 Glucose 160 H Calcium 9.1 C-Reactive Protein 2.30 H Preliminary micro results at discharge 03/09/22 17:45 Blood Culture - Preliminary Blood 03/09/22 17:35 Blood Culture - Preliminary Blood Discharge Plan Patient/Caregiver Discharge Instructions Activity: increase activity as tolerated Diet: Consistent Carbohydrate Activity Restrictions/Additional Instructions: Right ankle weightbearing as tolerated in orthopedic boot and follow-up with Dr. Guardado. Prescriptions: New amoxicillin-pot clavulanate 875-125 mg tablet 1 tab PO BID Qty: 10 0RF aspirin 325 mg tablet 325 mg PO QDAY Qty: 30 0RF Continued acetaminophen-codeine 300-60 mg Tablet 2 tab PO Q6H PRN (Reason: Pain) cephalexin 500 mg Capsule 500 mg PO Q8H methocarbamol 500 mg Tablet 1,000 mg PO QID PRN (Reason: Spasms) Rx Instructions: for back spasms spironolactone 100 mg Tablet 100 mg PO QDAY furosemide 80 mg Tablet 80 mg PO QDAY fluticasone propion-salmeterol [Advair Diskus] 250-50 mcg/dose Blister With Device 2 inh INHALATION Q12H pramipexole 0.25 mg Tablet 0.5 mg PO QHS Rx Instructions: 2 tabs 3 hours before bedtime montelukast 10 mg Tablet 10 mg PO QPM estradiol 0.5 mg Tablet 0.5 mg PO HS Rx Instructions: off 5 days; repeat cycle metoprolol succinate 25 mg Tablet Extended Release 24 Hr 25 mg PO HS Mucinex 1,200 mg Tablet Extended Release 12hr 600 - 1,200 mg PO Rx Instructions: 1 or 2 tabs fexofenadine 30 mg Tablet 30 mg PO DAILY albuterol sulfate 2.5 mg /3 mL (0.083 %) Solution For Nebulization 2.5 mg INHALATION Q4H PRN (Reason: Bronchospasm) insulin glargine 100 unit/mL Cartridge 30 unit SUBCUT HS clobetasol 0.05 % Cream 1 applic TOPICAL QDAY Rx Instructions: apply to legs for 2 weeks, then off for two weeks docusate sodium 100 mg Tablet 200 mg PO DAILY insulin glargine 100 unit/mL Cartridge 72 unit SUBCUT AC Rx Instructions: takes 72units in AM, 30 units in pm tramadol 50 mg tablet 1 - 2 tab PO QIDP PRN (Reason: Pain) Incruse Ellipta 62.5 mcg/actuation blister with device 1 puff INHALATION QDAY insulin aspart U-100 [Novolog Flexpen U-100 Insulin] 100 unit/mL (3 mL) insulin pen See Rx Instructions .ROUTE .COMPLEX Rx Instructions: per sliding scale allopurinol 100 mg tablet 1 tab PO QDAY montelukast 10 mg tablet 1 tab PO QDAY pregabalin 200 mg capsule 1 cap PO TID metolazone 2.5 mg tablet See Rx Instructions .ROUTE .COMPLEX Rx Instructions: 2.5 tab orally every other day fluconazole 150 mg tablet 1 tab PO ONCE PRN (Reason: Vaginal Irritation) pravastatin 20 mg tablet 1 tab PO QDAY potassium chloride 10 mEq tablet extended release 1 tab PO BID esomeprazole magnesium 40 mg capsule,delayed release(DR/EC) 1 cap PO QDAY Follow Up Plan Follow up with: Freddie Brown MD [Physician] - (Peripheral vascular disease, specifically right lower extremity.) Freddie Guardado MD [Physician] - Greta Ayala MD [Primary Care Provider] - Patient Disposition: Home, Self-Care Prognosis: Fair Overall status at discharge: patient is progressing back to baseline Discharge Orders: Discharge Order (Routine); Ordered 03/12/22 [facility]/Pulmonary Embolism Present on Admission: No
[2022-03-11] MEDS: PRAMIPEXOLE 0.25 MG TABLET PO SCH ×2 (11:10→20:34)
[2022-03-11] MEDS: FLUTICASONE/SALMETEROL 250/50 INHALER #14 INH SCH ×2 (11:17→20:35)
[2022-03-11] MEDS: CODEINE PO PRN ×3 (14:48→22:48)
[2022-03-11] MEDS: ACETAMINOPHEN PO PRN ×3 (14:48→22:48)
--- NOTE | 2022-03-11 19:12 | Ultrasound Report ---
CLINICAL INFORMATION: Recurrent infection with poor response to antibiotics. Evaluate for lower extremity vascular insufficiency COMPARISON: None. FINDINGS: The abdominal aorta and common iliac artery not visualized. There are 50-80% stenoses in the external iliac and common femoral arteries. 3-4 stenoses ranging between 20-50% seen in the superficial femoral artery. Popliteal artery is patent. The trifurcation arteries are heavily calcified and difficult to interrogate. All arteries appears to be patent to the foot level. IMPRESSION: Moderate stenoses in the right external iliac and common femoral artery with mild stenoses scattered throughout the superficial femoral artery. Suggest: CT abdominal aortogram with runoff for more specific evaluation. If the patient cannot tolerate iodinated contrast, then a MR dominant aortogram with runoff would be an adequate substitute. Interpreted and Authenticated by: Freddie Pelletier 03/11/22
[2022-03-11] MEDS: SIMVASTATIN 10 MG TABLET PO SCH (20:35)
[2022-03-11] MEDS: METOPROLOL SUCCINATE 25 MG TAB.XL.24H PO SCH (20:35)
[2022-03-11] MEDS ORDERED: UMECLIDINIUM 62.5 MCG INH SCH (21:00)
[2022-03-12] MEDS: CODEINE PO PRN ×2 (01:44→08:41)
[2022-03-12] MEDS: ACETAMINOPHEN PO PRN ×2 (01:44→08:41)
[2022-03-12] MEDS: traMADol 50 MG TABLET PO PRN ×2 (02:28→11:19)
[2022-03-12] MEDS: ASPIRIN 325 MG ENTERIC COATED TABLET PO SCH ×2 (02:31→08:05)
[2022-03-12] MEDS ORDERED: ASPIRIN 325 MG ENTERIC COATED TABLET PO ONE (02:41)
[2022-03-12] MEDS: 0.9 % SODIUM CHLORIDE 10 ML SYRINGE IV SCH (06:01)
[2022-03-12] MEDS: INSULIN LISPRO 1 UNIT/0.01 ML UNIT SQ SCH ×2 (08:00→11:42)
[2022-03-12] MEDS: SPIRONOLACTONE 25 MG TABLET PO SCH (08:01)
[2022-03-12] MEDS: INSULIN GLARGINE, HUMAN 1 UNIT/0.01 ML SQ SCH (08:01)
[2022-03-12] MEDS: MONTELUKAST 10 MG TABLET PO SCH (08:02)
[2022-03-12] MEDS: POTASSIUM CHLORIDE 10 MEQ TABLET PO SCH (08:02)
[2022-03-12] MEDS: ALLOPURINOL 100 MG TABLET PO SCH (08:03)
[2022-03-12] MEDS: FUROSEMIDE 80 MG TABLET PO SCH (08:03)
[2022-03-12] MEDS: PANTOPRAZOLE 40 MG TABLET PO SCH (08:03)
[2022-03-12] MEDS: ENOXAPARIN 40 MG/0.4 ML SYRINGE SQ SCH (08:04)
[2022-03-12] MEDS: PREGABALIN 100 MG CAPSULE PO SCH (08:04)
[2022-03-12] MEDS: cefTRIAXone 2 GM in DEXTROSE 5% IN WATER 50 ML IV SCH (08:32)
[2022-03-12] MEDS: FLUTICASONE/SALMETEROL 250/50 INHALER #14 INH SCH (08:32)
[2022-03-12] MEDS ORDERED: VANCOMYCIN 1,000 MG in 0.9 % SODIUM CHLORIDE 250 ML IV SCH (09:00)
[2022-03-12] MEDS: METHOCARBAMOL 500 MG TABLET PO PRN (11:19)
[2022-03-12] MEDS: PRAMIPEXOLE 0.25 MG TABLET PO SCH (11:42)
== END 2022-03-12 13:30 | disposition home or self-care (01) | DRG 603 ==
LOC: ED 15:46 → MEDSUR 23:12
PROVIDERS: ADMIT Internal Medicine; ATTEND Internal Medicine